=== PATIENT | female | born 1985 | race Hispanic/Latino ===

== ENCOUNTER 2021-09-02 08:06 | Outpatient (CLI) | payer SELFPAY | END 2021-09-02 08:07 | disposition home or self-care (01) | LOC: CSHLAB 08:06 | PROVIDERS: ATTEND Otolaryngology Otolaryngic Allergy | DX: Z01.812 Encounter for preprocedural laboratory examination (principal); C73 Malignant neoplasm of thyroid gland | CPT/HCPCS: 85014 ==

== ENCOUNTER 2021-09-07 05:47 | Observation (INO) | payer OTHER, SELFPAY ==
[2021-09-01 15:35] VITALS: BMI 27.4
[2021-09-07] MEDS ORDERED: PROPOFOL 20 ML ONE ×2 (06:52→07:29)
[2021-09-07] MEDS ORDERED: Rocuronium Bromide 10 MG/ML (10ML VIAL) ONE (06:52)
[2021-09-07] MEDS ORDERED: Dexamethasone 20 MG/5 ML VIAL ONE (06:52)
[2021-09-07] MEDS ORDERED: Midazolam HCl 2 mg/2 ml Vial ONE (06:52)
[2021-09-07] MEDS ORDERED: Fentanyl 100 MCG/2 ML VIAL ONE ×2 (06:52→09:03)
[2021-09-07] MEDS ORDERED: Ondansetron PF 4 MG/2 ML Vial ONE (06:52)
[2021-09-07] MEDS ORDERED: Lidocaine 2% PF 5 ML VIAL ONE (06:53)
[2021-09-07] MEDS ORDERED: Lidocaine 1% MPF 2 ML VIAL ONE (06:57)
[2021-09-07] MEDS ORDERED: HYDROcodone/Acetaminophen 5/325 mg Tablet PO PRN ×2 (06:57)
[2021-09-07] MEDS ORDERED: Lidocaine 1% w/Epinephrine 1:100K 20 ML VIAL ONE (07:34)
[2021-09-07] MEDS ORDERED: Ondansetron ODT 4 MG TAB PO PRN (10:45)
[2021-09-07] MEDS: Calcium Carbonate 500 MG ChewTAB PO SCH ×4 (12:09→21:00)
[2021-09-07] MEDS ORDERED: Acetaminophen 325 MG TAB PO PRN (18:03)
[2021-09-08 08:26] VITALS: BP 108/62; TEMP 96.8
[2021-09-08] MEDS: Calcium Carbonate 500 MG ChewTAB PO SCH (08:35)
== END 2021-09-08 10:35 | disposition home or self-care (01) ==
LOC: CSHSDC 05:47 → CSHTELE 09:34
PROVIDERS: ADMIT Otolaryngology Otolaryngic Allergy; ATTEND Otolaryngology Otolaryngic Allergy
PROC: 0GTK0ZZ Resection of Thyroid Gland, Open Approach (ICD-10-PCS; principal; 2021-09-07)
PROC: 0GBJ0ZZ Excision of Thyroid Gland Isthmus, Open Approach (ICD-10-PCS; 2021-09-07)
DX: C73 Malignant neoplasm of thyroid gland (principal); Z79.899 Other long term (current) drug therapy; E03.9 Hypothyroidism, unspecified
CPT/HCPCS: 36415; 82310; 83970; 88307; G0378; J1100; J2001; J2250; J2405; J2704; J3010